=== PATIENT | female | born 1965 | race Caucasian/White ===

== ENCOUNTER 2017-10-19 00:09 | Emergency (ER) | payer OTHER ==
[~2017-10-19] VITALS: Ht 154.9 cm; Wt 60.0 kg
[~2017-10-19 00:09] MED LIST: ASPI-676; GLYB1TAB3; HYDR-3498 PO; LISI2.5T80; TRAM50TA2 PO
[2017-10-19 00:26] VITALS: Ht 154.9 cm; Wt 60.0 kg
[2017-10-19] MEDS ORDERED: KETOROLAC 30 MG INJ IV STA (02:10)
[2017-10-19] MEDS ORDERED: morphine 2 MG INJ IV STA (02:10)
[2017-10-19] MEDS ORDERED: SOD CHLORIDE 0.9% 500 ML IV STA (02:10)
[2017-10-19 02:36] LABS: BASOPHIL # 0.1 10^3/ul (0.0-0.1); BASOPHILS % 0.6 % (0.0-2.0); EOSINOPHILS # 0.2 10^3/ul (0.0-0.5); EOSINOPHILS % 1.9 % (0.0-7.0); HEMATOCRIT 40.3 % (37.0-47.0); HEMOGLOBIN 14.3 g/dl (12.0-16.0); LYMPHOCYTES # 2.7 10^3/ul (0.8-2.9); LYMPHOCYTES % 28.7 % (15.0-51.0); MEAN CORPUSCULAR HEMOGLOBIN 31.8 pg (29.0-33.0); MEAN CORPUSCULAR HGB CONC 35.5 g/dl (32.0-37.0); MEAN CORPUSCULAR VOLUME 89.6 fl (82.0-101.0); MEAN PLATELET VOLUME 11.9 fl (7.4-10.4); MONOCYTE # 0.7 10^3/ul (0.3-0.9); MONOCYTES % 7.6 % (0.0-11.0); NEUTROPHIL # 5.6 10^3/ul (1.6-7.5); NEUTROPHILS % 60.9 % (39.0-77.0); PLATELET COUNT 191 10^3/UL (140-415); RED CELL DISTRIBUTION WIDTH 12.6 % (11.5-14.5); WHITE BLOOD COUNT 9.3 10^3/ul (4.8-10.8)
[2017-10-19 02:52] LABS: ALANINE AMINOTRANSFERASE 35 IU/L (13-69); ALBUMIN 4.4 g/dl (3.3-4.9); ALBUMIN/GLOBULIN RATIO 1.02; ALKALINE PHOSPHATASE 159 IU/L (42-121); ANION GAP 14 (8-16); ASPARTATE AMINO TRANSFERASE 20 IU/L (15-46); BILIRUBIN,INDIRECT 0.3 mg/dl (0-1.1); BILIRUBIN,TOTAL 0.3 mg/dl (0.2-1.3); BLOOD UREA NITROGEN 8 mg/dl (7-20); CALCIUM 10.2 mg/dl (8.4-10.2); CARBON DIOXIDE 31 mmol/L (21-31); CHLORIDE 98 mmol/L (97-110); CREATININE 0.53 mg/dl (0.44-1.00); POTASSIUM 3.6 mmol/L (3.5-5.1); SODIUM 139 mmol/L (135-144); TOTAL PROTEIN 8.7 g/dl (6.1-8.1)
[2017-10-19 02:58] LABS: GLUCOSE 453 mg/dl (70-220)
[2017-10-19] MEDS ORDERED: SOD CHLORIDE 0.9% 1,000 ML IV ONE ×2 (03:00→04:00)
[2017-10-19 03:05] LABS: TROPONIN-I < 0.012 ng/ml (0.00-0.12)
[2017-10-19 03:20] LABS: ADD UMIC YES; UR ASCORBIC ACID NEGATIVE (NEGATIVE); UR BACTERIA FEW /HPF (NONE SEEN); UR BILIRUBIN (Dip) NEGATIVE (NEGATIVE); UR BLOOD (Dip) NEGATIVE (NEGATIVE); UR CLARITY CLEAR (CLEAR); UR COLOR STRAW (YELLOW); UR GLUCOSE (Dip) 3+ mg/dL (NEGATIVE); UR KETONES (Dip) NEGATIVE (NEGATIVE); UR LEUKOCYTE ESTERASE (Dip) 3+ Leu/ul (NEGATIVE); UR NITRITE (Dip) NEGATIVE (NEGATIVE); UR RBC 3 /HPF (0-5); UR SPECIFIC GRAVITY (Dip) 1.026 (1.003-1.030); UR SQUAMOUS EPITHELIAL CELL FEW /HPF (FEW); UR TOTAL PROTEIN (Dip) NEGATIVE (NEGATIVE); UR UROBILINOGEN (Dip) NEGATIVE (NEGATIVE)
--- NOTE | 2017-10-19 03:31 | RADRPT ---
PROCEDURE: XR ribs . CLINICAL INDICATION: Mid right rib pain radiating to back. The patient fell 3 weeks ago. TECHNIQUE: AP and oblique views of the right ribs were obtained. COMPARISON: None FINDINGS: The bone mineralization is normal. There is no acute fracture or subluxation. The soft tissues are unremarkable. IMPRESSION: No acute fracture. RPTAT: [facility] Physician Yanet Date Time Electronically viewed and signed by Physician Yanet on 10/19/2017 03:31 RS/
--- NOTE | 2017-10-19 03:32 | RADRPT ---
PROCEDURE: XR Chest. CLINICAL INDICATION: Abdominal pain. Right rib pain radiating to back status post fall 3 weeks ago. TECHNIQUE: Single frontal view of the chest. COMPARISON: 10/23/2009. FINDINGS: The cardiomediastinal silhouette is within normal limits. The lungs are clear. No signs of pleural f luid or pneumothorax are seen. The osseous structures and soft tissues are unremarkable. IMPRESSION: No evidence for active cardiopulmonary disease. RPTAT: [facility] Physician Yanet Date Time Electronically viewed and signed by Physician Yanet on 10/19/2017 03:32 RS/
[2017-10-19] MEDS ORDERED: CEFTRIAXONE 1 GM/50 ML (PMX) 50 ML IVPB ONE (04:00)
[2017-10-19] MEDS ORDERED: CIPR500T4 PO (05:09)
[2017-10-19] MEDS ORDERED: NITR-58 PO (05:09)
[2017-10-19] MEDS ORDERED: NAPR-688 PO (05:09)
[2017-10-19] MEDS ORDERED: HYDR-906 PO (05:09)
--- NOTE | 2017-10-19 05:15 | ERD ---
ER Documentation Chief Complaint Chief Complaint Right upper abd pain x 3 week HPI This 52-year-old female presents with pain along her right ribs for 3 weeks. Also complains of various pain location such as her right lower leg as well as her left wrist. Also admits to dysuria. Denies any fevers or chills. Denies any chest pain or shortness of breath. ROS All systems reviewed and are negative except as per history of present illness. Medications Home Meds Active Scripts Hydrocodone/Acetaminophen ([place] 5-325 Tablet) 1 Each Tablet, 1 EACH PO Q6, #7 TAB Prov:LAVERNE HOANG DO 10/19/17 Naproxen* (Naproxen*) 500 Mg Tablet, 500 MG PO BID Y for PAIN, #20 TAB Prov:LAVERNE HOANG DO 10/19/17 Nitrofurantoin Monohyd Macrocr* (Macrobid*) 100 Mg Capsr, 100 MG PO HS for 5 Days, CAP Prov:LAVERNE HOANG DO 10/19/17 Ciprofloxacin Hcl* (Ciprofloxacin Hcl*) 500 Mg Tablet, 500 MG PO BID for 5 Days , TAB Prov:LAVERNE HOANG DO 10/19/17 Tramadol HCl (Tramadol HCl) 50 Mg Tablet, 50 MG PO Q6 Y for PAIN, #15 TAB Prov:EV TOLBERT [employer] 03/04/16 Hydrocodone Bit-Acetaminophen* ([place]*) 5-325 Mg Tab, 1 TAB PO Q6 Y for PAIN, # 11 TAB Prov:NASREENELVIA DO 10/20/15 Reported Medications Glyburide, Micro-Metformin Hcl (Glucovance) 1 Tab Tablet 10/23/09 Lisinopril* (Zestril*) 2.5 Mg Tablet 10/23/09 Aspirin (Shyam Child) 81 Mg Chew 10/23/09 Allergies Allergies: Coded Allergies: No Known Allergies (Verified Allergy, Mild, 10/23/09) PMhx/Soc History of Surgery: Yes () Anesthesia Reaction: No Hx Neurological Disorder: No Hx Respiratory Disorders: No Hx Cardiac Disorders: Yes (htn) Hx Psychiatric Problems: No Hx Miscellaneous Medical Probl: Yes (dm) Hx Alcohol Use: No Hx Substance Use: No Hx Tobacco Use: No Smoking Status: Never smoker Physical Exam Vitals Vital Signs Date Time Temp Pulse Resp B/P Pulse Ox O2 Delivery O2 Flow Rate FiO2 10/19/17 04:00 84 17 146/90 99 Room Air 10/19/17 03:31 82 16 144/86 99 Room Air 10/19/17 03:00 97.6 10/19/17 01:40 98.0 85 20 150/100 100 Room Air 10/19/17 00:26 97.7 77 20 189/109 99 Physical Exam Const: [] No apparent distress Head: Atraumatic Eyes: Normal Conjunctiva ENT: Normal External Ears, Nose and Mouth. Resp: Clear to auscultation bilaterally Cardio: Regular rate and rhythm, no murmurs Abd: Soft, non tender, non distended. Normal bowel sounds Skin: No petechiae or rashes Back: No midline or flank tenderness Ext: No cyanosis, or edema, normal appearance of right mid anterior ribs and the patient does complain of pain through there. Neur: Awake and alert and oriented 3, no focal deficits Psych: Normal Mood and Affect Result Diagram: 10/19/17 0140 10/19/17 0140 Results 24 hrs Laboratory Tests Test 10/19/17 01:40 10/19/17 04:33 White Blood Count 9.310^3/ul Red Blood Count 4.5010^6/ul Hemoglobin 14.3g/dl Hematocrit 40.3% Mean Corpuscular Volume 89.6fl Mean Corpuscular Hemoglobin 31.8pg Mean Corpuscular Hemoglobin Concent 35.5g/dl Red Cell Distribution Width 12.6% Platelet Count 07996^3/UL Mean Platelet Volume 11.9fl Neutrophils % 60.9% Lymphocytes % 28.7% Monocytes % 7.6% Eosinophils % 1.9% Basophils % 0.6% Nucleated Red Blood Cells % 0.0/100WBC Neutrophils # 5.610^3/ul Lymphocytes # 2.710^3/ul Monocytes # 0.710^3/ul Eosinophils # 0.210^3/ul Basophils # 0.110^3/ul Nucleated Red Blood Cells # 0.010^3/ul Urine Color STRAW Urine Clarity CLEAR Urine pH 7.0 Urine Specific [place] 1.026 Urine Ketones NEGATIVEmg/dL Urine Nitrite NEGATIVEmg/dL Urine Bilirubin NEGATIVEmg/dL Urine Urobilinogen NEGATIVEmg/dL Urine Leukocyte Esterase 3+Mckayla/ul Urine Microscopic RBC 3/HPF Urine Microscopic WBC 10/HPF Urine Squamous Epithelial Cells FEW/HPF Urine Bacteria FEW/HPF Urine Hemoglobin NEGATIVEmg/dL Urine Glucose 3+mg/dL Urine Total Protein NEGATIVEmg/dl Sodium Level 139mmol/L Potassium Level 3.6mmol/L Chloride Level 98mmol/L Carbon Dioxide Level 31mmol/L Anion Gap 14 Blood Urea Nitrogen 8mg/dl Creatinine 0.53mg/dl Glucose Level 453mg/dl Calcium Level 10.2mg/dl Total Bilirubin 0.3mg/dl Direct Bilirubin 0.00mg/dl Indirect Bilirubin 0.3mg/dl Aspartate Amino Transf (AST/SGOT) 20IU/L Alanine Aminotransferase (ALT/SGPT) 35IU/L Alkaline Phosphatase 159IU/L Troponin I < 0.012ng/ml Total Protein 8.7g/dl Albumin 4.4g/dl Globulin 4.30g/dl Albumin/Globulin Ratio 1.02 Lipase 93U/L Bedside Glucose 307mg/dL Current Medications Medications (Trade) Dose Ordered Sig/Oscar Route PRN Reason Start Time Stop Time Status Last Admin Dose Admin Sodium Chloride (NS) 500 ml @ 500 mls/hr Q1H STAT IV 10/19/17 02:10 10/19/17 03:09 DC 10/19/17 02:23 Morphine Sulfate (morphine) 2 mg ONCE STAT IV 10/19/17 02:10 10/19/17 02:14 DC 10/19/17 02:23 Ketorolac Tromethamine 30 mg 30 mg ONCE STAT IV 10/19/17 02:10 10/19/17 02:14 DC 10/19/17 02:23 Sodium Chloride 1,000 ml @ 1,000 mls/hr Q1H ONCE IV 10/19/17 03:00 10/19/17 03:59 DC 10/19/17 03:06 Ceftriaxone Sodium 50 ml @ 100 mls/hr ONCE ONCE IVPB 10/19/17 04:00 10/19/17 04:29 DC 10/19/17 04:28 Sodium Chloride (NS) 1,000 ml @ 1,000 mls/hr Q1H ONCE IV 10/19/17 04:00 10/19/17 04:59 DC 10/19/17 04:29 Procedures/MDM 52-year-old female with applicator urinary tract infection secondary to hyperglycemia from her diabetes. She was given a gram of Rocephin in the emergency room and treated with 2 L of IV fluid which did help bring her sugar down prior to the completion. She was given 4 mg of morphine and Toradol which decreased her pain significantly. Pain was resolved no evidence of rib fracture and no evidence of acute cardiac ischemia with normal EKG and negative troponin. She has diabetic medication at home that she intends to take and she feels much better and would like to be discharged. I see no reason for acute admission. I discharge her with Macrobid, Cipro, naproxen and 7 [place] pills. Strict return precautions and primary care follow-up given Chest x-ray interpretation: I see no acute process, see no infiltrate, no rib fractures, no wide mediastinum, no pneumothorax area Right rib x-ray interpretation: No rib fractures visualized normal lung parenchyma EKG interpretation: Normal sinus rhythm rate of 83, left axis deviation, no ST or T-wave changes concerning for acute ischemia, normal intervals. Normal EKG Departure Diagnosis: Primary Impression: Hyperglycemia Additional Impression: Complicated UTI (urinary tract infection) Condition: Stable Patient Instructions: Hyperglycemia (High Blood Sugar), Understanding Urinary Tract Infections (UTIs) Additional Instructions: Call your primary care doctor TOMORROW for an appointment during the next 2-3 days.See the doctor sooner or return here if your condition worsens before your appointment time. LAVERNE HOANG DO Oct 19, 2017 05:15
[2017-10-19 05:45] VITALS: BP 123/79; PULSE 87; RESP 16; TEMP 97.7
== END 2017-10-19 06:03 | disposition home or self-care (01) ==
LOC: E/R 00:09
DX: E11.65 Type 2 diabetes mellitus with hyperglycemia (principal); N39.0 Urinary tract infection, site not specified; I10 Essential (primary) hypertension; Z79.82 Long term (current) use of aspirin
CPT/HCPCS: 36415; 71010; 71100; 80053; 81001; 82962; 83690; 84484; 85025; 96374; 96375; J0696; J1885; J2270; J7030; J7040; Z7502; 93005